=== PATIENT | male | born 1950 | race Hispanic/Latino ===

== ENCOUNTER 2021-06-01 06:37 | Observation (INO) | payer MEDICARE ==
[2021-06-01 07:22] LABS: Basophils # (Auto) 0.1 K/mm3 (0.0-0.1); Basophils % (Auto) 1.1 % (0.0-1.8); Eosinophils # (Auto) 0.2 K/mm3 (0.0-0.4); Eosinophils % (Auto) 2.6 % (0.0-4.3); Hematocrit 45.2 % (35.5-45.6); Lymphocytes # (Auto) 1.1 K/mm3 (1.2-5.4); Lymphocytes % (Auto) 19.6 % (13.4-35.0); Mean Corpuscular HGB Conc 33 % (32-34); Mean Corpuscular Volume 92 fl (84-94); Monocytes # (Auto) 0.8 K/mm3 (0.0-0.8); Monocytes % (Auto) 13.6 % (0.0-7.3); Platelet Count 200 K/mm3 (140-440); Red Blood Count 4.91 M/mm3 (3.65-5.03); Red Cell Distribution Width 13.1 % (13.2-15.2)
[2021-06-01 07:28] LABS: Blood Urea Nitrogen 11 mg/dL (9-20); Calcium 9.5 mg/dL (8.4-10.2); Hemolysis Index 4; INR 0.93 (0.87-1.13)
[2021-06-01 07:29] LABS: Partial Thromboplastin Time 28.8 Sec. (24.2-36.6)
[2021-06-01 07:30] LABS: BUN/Creatinine Ratio 16
[2021-06-01] MEDS ORDERED: HEPARIN/NS 5000 UNIT/500ML 1,000 ML IR ONE (08:08)
[2021-06-01] MEDS ORDERED: MIDAZOLAM 2 MG/2 ML INJ ONE (08:09)
[2021-06-01] MEDS ORDERED: VERAPAMIL 5 MG/2 ML INJ ONE (08:10)
[2021-06-01] MEDS ORDERED: LIDOCAINE (2%) 20 MG/1 ML VIAL 20 ML MDV INFILTRATI ONE (08:10)
[2021-06-01] MEDS ORDERED: fentaNYL 100 MCG/2 ML INJ ONE (08:10)
[2021-06-01] MEDS ORDERED: NITROGLYCERIN SYRINGE 3 ML ONE (08:11)
[2021-06-01] MEDS: SODIUM CHLORIDE 0.9% 500 ML 500 ML IV SCH ×3 (08:12→08:48)
[2021-06-01] MEDS: HEPARIN 10,000 UNITS/10 ML VIAL ONE ×2 (08:47→08:56)
[2021-06-01] MEDS ORDERED: ALUM-MAG HYDROXIDE-SIMETHICONE 200-200-20MG/5ML ORAL LIQD 30 ML ONE (09:17)
[2021-06-01] MEDS ORDERED: CLOPIDOGREL 300 MG TAB ONE (09:17)
[2021-06-01] MEDS ORDERED: ACETAMINOPHEN 325 MG TAB PO PRN (09:49)
[2021-06-01] MEDS ORDERED: HYDROcodone/ACETAMINOPHEN 5-325 MG TAB PO PRN (09:49)
--- NOTE | 2021-06-01 10:00 | Short Stay Summary ---
Short Stay Documentation Date of service: 06/01/21 - History H&P: obtained from office - Allergies and Medications Current Medications: Allergies Penicillins Adverse Reaction (Verified 02/26/13 14:46) Hives Home Medications Medication Instructions Recorded Confirmed Last Taken Type Aspirin [Aspirin BABY CHEW TAB] 1 tab PO DAILY 02/26/13 06/01/21 06/01/21 History Atorvastatin [Lipitor] 1 tab PO DAILY 02/26/13 06/01/21 05/31/21 History Carvedilol 1 tab PO BID 02/26/13 06/01/21 05/31/21 History Clopidogrel Bisulfate [Clopidogrel] 1 tab PO DAILY 02/26/13 06/01/21 06/01/21 History Ezetimibe [Zetia] 10 mg PO QDAY 06/01/21 06/01/21 05/31/21 History Sacubitril/Valsartan [Entresto 24 1 tab PO BID 06/01/21 06/01/21 05/31/21 History - 26 mg] Active Medications Acetaminophen (Acetaminophen 325 Mg Tab) 650 mg PO Q4H PRN PRN Reason: Pain MILD(1-3)/Fever >100.5/LANG Hydrocodone Bitart/Acetaminophen (Hydrocodone/Acetaminophen 5-325 Mg Tab) 1 each PO Q6H PRN PRN Reason: Pain, Moderate (4-6) Sodium Chloride (Nacl 0.9% 500 Ml) 500 mls @ 50 mls/hr IV DIRECT MARIE Stop: 06/01/21 16:59 Last Admin: 06/01/21 08:48 Dose: 50 mls/hr Sodium Chloride (Nacl 0.9% 1000 Ml) 1,000 mls @ 75 mls/hr IV DIRECT MARIE Stop: 06/01/21 14:59 - Physical exam Integumentary: other (Dressing clean dry and intact with no signs of bleeding or hematoma) - Brief post op/procedure progress note Date of procedure: 06/01/21 Pre-op diagnosis: Ischemic cardiomyopathy Post-op diagnosis: same Anesthesia: local Estimated blood loss: minimal - Hospital course Hospital course: Patient with a known history of coronary artery disease presents today for [facility] for decreased EF, fatigue, and dyspnea on exertion. Patient had successful PCI of mid LAD with 1 REYNA through right radial. Cardiac cath findings are left main is pain, LAD proximal, distal pain. Circumflex proximal stent patent. RCA mid stent widely patent with mild disease in proximal distal vessel. Patient meets criteria for same-day discharge. Patient to continue dual antiplatelet therapy. Plan of care discussed in detail with patient and patient's family - Disposition Condition at discharge: Good - Discharge Diagnoses (1) Ischemic cardiomyopathy Status: Acute (2) Angina at rest Status: Acute (3) Coronary artery disease Status: Acute (4) Acute combined systolic and diastolic heart failure Status: Acute (5) Hypertension Status: Acute Short Stay Discharge Plan Activity: advance as tolerated Diet: low fat, low cholesterol, low salt Wound: keep clean and dry, per your surgeon's advice Follow up with: PRIMARY CAREMD [Primary Care Provider] - 7 Days MINH BABB MD [Staff Physician] - 7 Days Forms: CardCath PCI D/C Instructions
--- NOTE | 2021-06-01 10:31 | Cardiac Catherization Report ---
DATE OF SERVICE: 06/01/2021 LEFT HEART CATHETERIZATION, PERCUTANEOUS CORONARY INTERVENTION WITH INTRAVASCULAR ULTRASOUND REPORT CLINICAL INFORMATION: This is a 71-year-old male with known coronary arterial disease with PCI of the circumflex, RCA with decreased LV dysfunction 35-40% on recent echo with symptoms of shortness of breath with exertion and increased fatigue, has hypertension, hyperlipidemia, is here for left heart catheterization. DESCRIPTION OF PROCEDURE: Procedure was done with moderate sedation started at 8:43, finished at 9:11. There is 30 minutes of moderate sedation noted. Procedure was done via the right radial artery, sterile technique and local anesthesia. A 6-Bolivian radial sheath inserted. Left system engaged with JL3.5 catheter. Left main is large and patent, mild calcification, patent. LAD: Medium caliber vessel, diffuse disease. Mild calcification with mid focal 95% lesion. Diagonal 1 small to medium caliber vessel, patent. Diagonal 2 small caliber vessel, patent. Distal LAD is patent. Circumflex ostial has a 20% calcified lesion. Proximal stent is widely patent. OM1, OM2 are small to medium caliber vessels, are patent. RCA engaged with JR4 is a large dominant vessel, mid stent is widely patent, mild disease noted in the proximal and distal portion. PDA, PLV are small to medium caliber vessels with long vessels are patent. LV gram done in [place] and [place] shows mild LV dysfunction, EF 40% with hypokinesis of the inferolateral wall. LVEDP at 30 mmHg, LV is 116, aortic is 115/80. No gradient across the aortic valve. So, percutaneous/intravascular ultrasound of the LAD; 1. Engaged left system, an EBU 3.5 guiding catheter for obtaining adequate ACT. 2. Wire to the distal LAD with short Runthrough wire. 3. Ballooned in the mid LAD with 2.5 x 8 balloon x2 inflations at 15 atmospheres. 4. Intravascular ultrasound showed mild calcification noted 2.5-3.0 vessel. 5. Stented the mid LAD with a drug-eluting Resolute [place] using a burt wire and Iron Man was placed in, removed prior to stent inflation at 20 atmospheres. Excellent angiographic result, reduced stenosis 0%. No dissection or perforation or embolization noted. Removed coronary wire, multiple angiograms, continued LOLA 3 flow, reduced stenosis 0%. No dissection or embolization noted. A 6-Bolivian guiding catheter taken over guidewire. A 6-Bolivian radial sheath was discontinued. Radial band applied. No hematoma. No bleeding. SUMMARY: Successful percutaneous coronary intervention of the mid LAD with a drug-eluting Resolute 2.75 x 12 mm at 20 atmospheres. Angiographically, the left main is patent. LAD proximal, distal patent. Diagonal 1, diagonal 2 small to medium caliber was patent. Circumflex ostial 20% calcified, proximal stent, patent. OM1, OM2 are small to medium caliber vessel, patent. RCA, mid stent widely patent with mild disease in the proximal and distal vessel. PDA, PLV are small to medium caliber vessel, was long vessel, patent with mild LV dysfunction with EF 40% with inferolateral wall hypokinesis. Continue dual antiplatelet therapy. Anticipate discharge same day. Discussed in detail with the patient and the patient's family. TID: [id number] RECEIPT: [id number] KAREN/DIONNE/JOSEPHINE
[2021-06-01] MEDS ORDERED: SODIUM CHLORIDE 0.9% 1000 ML 1,000 ML IV SCH (11:00)
[2021-06-01] MEDS ORDERED: carvediloL 12.5 MG TAB PO SCH (12:00)
[2021-06-01] MEDS ORDERED: SACUBITRIL/VALSARTAN 24-26 MG TAB PO SCH (12:00)
[2021-06-01 15:11] VITALS: BP 106/77
--- NOTE | 2021-06-02 09:17 | Electrocardiograph Report ---
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
--- NOTE | 2021-06-02 09:17 | Electrocardiograph Report ---
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
[2021-06-02] MEDS ORDERED: ASPIRIN 81 MG TAB CHEW PO SCH (10:00)
[2021-06-02] MEDS ORDERED: CLOPIDOGREL 75 MG TAB PO SCH (10:00)
== END 2021-06-01 15:55 | disposition home or self-care (01) ==
LOC: CATHLABREC 06:37 → 4A 09:49
PROVIDERS: ADMIT Internal Medicine; ATTEND Internal Medicine
DX: I25.5 Ischemic cardiomyopathy (principal); I25.10 Atherosclerotic heart disease of native coronary artery without angina pectoris; I11.0 Hypertensive heart disease with heart failure; I50.41 Acute combined systolic (congestive) and diastolic (congestive) heart failure; Z79.82 Long term (current) use of aspirin; Z79.899 Other long term (current) drug therapy; Z98.890 Other specified postprocedural states
CPT/HCPCS: 36415; 80048; 85025; 85610; 85730; 92978; 93005; 93458; C1725; C1753; C1769; C1874; C1887; C1894; C9600; G0378; J1644; J1815; J2250; J3010; J3490; J7030; J7040; 92928; Q0162; Q9967